=== PATIENT | female | born 1975 | race Caucasian/White ===

== ENCOUNTER 2016-12-17 19:26 | Emergency (ER) | payer BC ==
[~2016-12-17] VITALS: Ht 162.6 cm; Wt 121.0 kg
[~2016-12-17 19:26] MED LIST: APRE1TAB2 PO; CETI10CA PO; GUAI120S26 PO; IBUP-1542 PO
[2016-12-17 19:43] VITALS: Ht 162.6 cm; Wt 121.0 kg
[2016-12-17] MEDS ORDERED: morphine 4 MG/ML VIAL IV STA (20:03)
[2016-12-17] MEDS ORDERED: SOD CHLORIDE 0.9% 1,000 ML IV STA (20:03)
[2016-12-17] MEDS ORDERED: ONDANSETRON 4 MG INJ IV STA (20:03)
[2016-12-17 20:11] LABS: URINE BLOOD (Dip) POC 3+ (NEGATIVE)
[2016-12-17 20:49] LABS: ADD SCAN DIFF NO
[2016-12-17 20:53] LABS: BASOPHIL # 0.1 10^3/ul (0.0-0.1); BASOPHILS % 0.7 % (0.0-2.0); EOSINOPHILS # 0.2 10^3/ul (0.0-0.5); EOSINOPHILS % 1.8 % (0.0-7.0); HEMATOCRIT 39.7 % (37.0-47.0); HEMOGLOBIN 13.4 g/dl (12.0-16.0); LYMPHOCYTES # 2.9 10^3/ul (0.8-2.9); LYMPHOCYTES % 24.3 % (15.0-51.0); MEAN CORPUSCULAR HEMOGLOBIN 30.2 pg (29.0-33.0); MEAN CORPUSCULAR HGB CONC 33.8 g/dl (32.0-37.0); MEAN CORPUSCULAR VOLUME 89.6 fl (82.0-101.0); MEAN PLATELET VOLUME 11.5 fl (7.4-10.4); MONOCYTE # 0.6 10^3/ul (0.3-0.9); MONOCYTES % 5.3 % (0.0-11.0); NEUTROPHIL # 8.1 10^3/ul (1.6-7.5); NEUTROPHILS % 67.5 % (39.0-77.0); PLATELET COUNT 319 10^3/UL (140-415); RED BLOOD COUNT 4.43 10^6/ul (4.20-5.40); RED CELL DISTRIBUTION WIDTH 13.5 % (11.5-14.5)
[2016-12-17 20:55] LABS: ADD UMIC YES; UR BILIRUBIN (Dip) NEGATIVE (NEGATIVE); UR BLOOD (Dip) 2+ (NEGATIVE); UR COLOR LT. YELLOW (YELLOW); UR GLUCOSE (Dip) NEGATIVE (NEGATIVE); UR KETONES (Dip) NEGATIVE (NEGATIVE); UR LEUKOCYTE ESTERASE (Dip) 2+ (NEGATIVE); UR NITRITE (Dip) NEGATIVE (NEGATIVE); UR TOTAL PROTEIN (Dip) 1+ (NEGATIVE); UR UROBILINOGEN (Dip) 0.2 E.U./dL (0.1-1.0)
[2016-12-17 20:56] LABS: UR CLARITY SL HAZY (CLEAR)
[2016-12-17 21:03] LABS: UR BACTERIA FEW; UR SQUAMOUS EPITHELIAL CELL MODERATE
--- NOTE | 2016-12-17 21:15 | RADRPT ---
PROCEDURE: CT Abdomen and Pelvis without contrast CLINICAL INDICATION: Right lower quadrant and right upper quadrant abdominal pain TECHNIQUE: Transaxial images were obtained through the abdomen and pelvis on a multi-slice scanner without the intravenous contrast administration. No oral contrast had previously been given. Sagit torsten and coronal re-formations were subsequently reconstructed. One or more of the following dose reduction techniques were used: - Automated exposure control. - Adjustment of the mA and/or kV according to patient size. - Use of iterative reconstruction technique. Radiation dose: CTDIvol = 23.65 mGy; DLP = 1376.09 mGy-cm. COMPARISON: Comparison to the right upper quadrant abdominal sonogram done earlier on the same gwendolyn e. The previous sonogram demonstrated a 3 cm stone within the gallbladder not associated with gallbladd er wall thickening or bile duct dilatation. FINDINGS: Lung bases: The visualized lung bases appear unremarkable. Liver: The liver is mildly enlarged and mildly fatty infiltrated with no discrete focal lesion ident ified. Gallbladder: A 3 cm stone is seen within the gallbladder but the gallbladder wall is not thickened. Bile ducts: The intra and extrahepatic bile ducts are normal in caliber. Pancreas: Appears normal with no mass or inflammation evident. Spleen: Normal in size with no focal lesion. A small accessory spleen is seen at the inferior spine, . Adrenals: Normal with no mass identified. Kidneys, ureters and bladder: The kidneys are normal in size and there is no mass, pathological calc ification, or hydronephrosis evident. There is no perinephric stranding.The bladder is poorly disten ded. Reproductive organs: The uterus is midline. A 2.7 cm right adnexal cyst is evident. The left ovary appears mildly prominent measuring 4.6 cm in maximal diameter. Stomach and bowel: The stomach appears unremarkable. Diverticuli are seen within the sigmoid colon. There is no evidence of bowel obstruction or inflammation. Appendix: A normal vermiform appendix is evident. Peritoneum: No free intraperitoneal fluid or air is identified. Aorta: Normal in caliber with no aneurysmal dilatation. IVC: Unremarkable. Lymph nodes: No pathologically enlarged nodes are identified. Osseous structures: Mild degenerative spondylosis is seen to the thoracic spine. IMPRESSION: 1. A 3 cm stone is seen within the gallbladder but the gallbladder wall is not thickened, there is no bile duct dilatation, and the pancreas appears unremarkable. 2. Diverticuli are seen within the sigmoid colon but there is no evidence of bowel obstruction or i nflammation. A normal vermiform appendix is evident. 3. No evidence of urinary outflow obstruction or ureterolithiasis. The bladder is poorly distended. 4. There is no free intraperitoneal fluid or air. 5. Suggestion of a 2.7 cm right adnexal cyst. The left ovary appears mildly prominent measuring 4. 6 cm in maximal diameter. 6. Mild hepatomegaly with mild diffuse fatty infiltration but no focal lesion. Physician Miguel Angel Date Time Electronically viewed and signed by Gertrude Osman Physician on 12/17/2016 21:15 RH/
[2016-12-17 21:17] LABS: ALBUMIN 4.7 g/dl (3.3-4.9); ALBUMIN/GLOBULIN RATIO 1.42; CALCIUM 9.4 mg/dl (8.4-10.2); CREATININE 0.72 mg/dl (0.44-1.00); POTASSIUM 3.8 mmol/L (3.5-5.1)
--- NOTE | 2016-12-17 21:19 | RADRPT ---
PROCEDURE: US Abdomen Right Upper Quadrant. CLINICAL INDICATION: Right upper quadrant and right lower quadrant pain TECHNIQUE: Multiple real-time longitudinal and transverse images were acquired of the patient's [facility] upper quadrant abdomen utilizing a curved array transducer. COMPARISON: 06/05/2014 FINDINGS: Liver: The liver is enlarged with the sagittal diameter of the right lobe measuring 19.4 cm. The li marcela is diffusely echogenic suspicious for fatty infiltration. No focal lesion is evident. Gallbladder: A 3 cm shadowing stone is seen within the gallbladder but the gallbladder wall does not appear thickened. The technologist reports a negative sonographic Martines's sign. Bile ducts: There is no significant intra or extrahepatic bile duct dilatation. No choledocholiths a re seen within the visualized portions. The common bile duct measures 4.2 mm in cross diameter. Pancreas: The pancreas is largely obscured by bowel gas. Right adrenal : No mass is evident. Right kidney: Normal in echotexture andl in size. The right kidney measures 11.9 cm in length. No ma ss, pathological calcification, or hydronephrosis is evident. Peritoneum: There is no free intraperitoneal fluid IMPRESSION: 1. A 3 cm stone is seen within the gallbladder lumen but the gallbladder wall is not thickened and the technologist reports a negative sonographic Martines's sign. 2. No bile duct dilatation is evident. 3. The pancreas is obscured by bowel gas. 4. Hepatomegaly with diffuse fatty infiltration but no discrete focal lesion is evident. 5. Normal appearing right kidney without hydronephrosis. 6. No free fluid is identified. Physician Miguel Angel Date Time Electronically viewed and signed by Physician Miguel Angel on 12/17/2016 21:18 /
--- NOTE | 2016-12-17 21:41 | ERD ---
ER Documentation Chief Complaint Date/Time DATE: 12/17/16 TIME: 21:39 Chief Complaint burning when urinating, ruq abd pain radiating to back and n/v HPI Patient is a 41-year-old female who presents to the ED with right sided abdominal pain 1 day. She states that the pain is constant. She also complains of dysuria and urgency and pain in her back. She complains of nausea and had had one episode of nonbloody nonbilious emesis. Has had normal bowel movements daily. Denies fever or chills. She denies leg pain or swelling. Denies headache or dizziness. Denies chest pain or cough or shortness of breath. Denies recent travel or recent surgeries. No other complaints. ROS All systems reviewed and are negative except as per history of present illness. Medications Home Meds Active Scripts Ondansetron (Ondansetron Odt) 4 Mg Tab.rapdis, 4 MG PO Q6H Y for NAUSEA AND/OR VOMITING, #10 TAB Prov:WENDY TURNERC 12/17/16 Acetaminophen* (Tylophen*) 500 Mg Capsule, 1 CAP PO Q6H Y for PAIN AND OR ELEVATED TEMP, #20 CAP Prov:WENDY TURNER-C 12/17/16 Nitrofurantoin Monohyd Macrocr* (Macrobid*) 100 Mg Capsr, 100 MG PO BID for 7 Days, CAP Prov:WENDY TURNER PA-C 12/17/16 Ibuprofen* (Motrin*) 600 Mg Tab, 600 MG PO Q6H Y for PAIN AND OR ELEVATED TEMP, #30 TAB Prov:EMILY ANDERSON NP 02/28/16 Cetirizine Hcl* (Zyrtec*) 10 Mg Capsule, 10 MG PO DAILY, #30 TAB Prov:EMILY ANDERSON TECH[employer]ICAL [employer]ICATIONS MANAGER 02/28/16 Acaocatmhfg-Z-Xigyrctohh Hb* (Guaifenesin* DM Syrup) 120 Ml Syrup, 10 ML PO Q4H Y for COUGH, #120 ML Prov:EMILY ANDERSON NP 02/28/16 Reported Medications Apremilast (Otezla) Unknown Strength Tab.ds.pk, PO 02/28/16 Allergies Allergies: Coded Allergies: No Known Allergy (Verified , 06/05/14) PMhx/Soc Medical and Surgical Hx: pt denies Surgical Hx History of Surgery: No Anesthesia Reaction: No Hx Neurological Disorder: No Hx Respiratory Disorders: No Hx Cardiac Disorders: No Hx Psychiatric Problems: No Hx Miscellaneous Medical Probl: Yes (PSORIASIS) Hx Alcohol Use: No Hx Substance Use: No Hx Tobacco Use: No Smoking Status: Never smoker FmHx Family History: No coronary disease, No diabetes, No other Physical Exam Vitals Vital Signs Date Time Temp Pulse Resp B/P Pulse Ox O2 Delivery O2 Flow Rate FiO2 12/17/16 19:43 99.3 98 20 181/105 99 Physical Exam GENERAL: Well-developed, well-nourished female. Appears in no acute distress. HEAD: Normocephalic, atraumatic. EYES: Pupils are equally reactive bilaterally. EOMs grossly intact. No conjunctival erythema. ENT: Moist mucous membranes. No uvula deviation. No kissing tonsils. No exudates. NECK: Supple. No lymphadenopathy or thyromegaly. No meningismus. negative kernig. negative brudinski. LUNG: Clear to auscultation bilaterally. No rhonchi, wheezing, rales or coarse breath sounds. HEART: Regular rate and rhythm. No murmurs, rubs or gallops. ABDOMEN: No scars, ecchymosis or noted. Soft, and nondistended. Positive bowel sounds in all four quadrants. No rebound tenderness, no guarding. (-) McBurney s point tenderness. No CVA tenderness. Tenderness in the right lower quadrant right pelvic pain and right upper quadrant. BACK: No midline tenderness. Extremities: Equal pulses bilaterally. No peripheral clubbing, cyanosis or edema. No unilateral leg swelling. NEUROLOGIC: Alert and oriented. Moving all four extremities. 5/5 strength in all extremities. Normal speech. Steady gait. SKIN: Normal color. Warm and dry. Multiple psoriatic lesions capillary refill < 2 seconds Result Diagram: 12/17/16201712/17/16 2018 Results 24 hrs Laboratory Tests Test 12/17/16 20:14 12/17/16 20:18 12/17/16 20:21 Bedside Urine pH (LAB) 6.0 Bedside Urine Protein (LAB) 2+ Bedside Urine Glucose (UA) Negative Bedside Urine Ketones (LAB) Negative Bedside Urine Blood 3+ Bedside Urine Nitrite (LAB) Negative Bedside Urine Leukocyte Esterase (L 2+ White Blood Count 12.010^3/ul Red Blood Count 4.4310^6/ul Hemoglobin 13.4g/dl Hematocrit 39.7% Mean Corpuscular Volume 89.6fl Mean Corpuscular Hemoglobin 30.2pg Mean Corpuscular Hemoglobin Concent 33.8g/dl Red Cell Distribution Width 13.5% Platelet Count 03699^3/UL Mean Platelet Volume 11.5fl Neutrophils % 67.5% Lymphocytes % 24.3% Monocytes % 5.3% Eosinophils % 1.8% Basophils % 0.7% Nucleated Red Blood Cells % 0.0/100WBC Neutrophils # 8.110^3/ul Lymphocytes # 2.910^3/ul Monocytes # 0.610^3/ul Eosinophils # 0.210^3/ul Basophils # 0.110^3/ul Nucleated Red Blood Cells # 0.010^3/ul Sodium Level 139mmol/L Potassium Level 3.8mmol/L Chloride Level 102mmol/L Carbon Dioxide Level 25mmol/L Anion Gap 16 Blood Urea Nitrogen 7mg/dl Creatinine 0.72mg/dl Glucose Level 108mg/dl Calcium Level 9.4mg/dl Total Bilirubin 0.0mg/dl Direct Bilirubin 0.00mg/dl Indirect Bilirubin 0.0mg/dl Aspartate Amino Transf (AST/SGOT) 21IU/L Alanine Aminotransferase (ALT/SGPT) 29IU/L Alkaline Phosphatase 82IU/L Total Protein 8.0g/dl Albumin 4.7g/dl Globulin 3.30g/dl Albumin/Globulin Ratio 1.42 Lipase 35U/L Urine Color LT. YELLOW Urine Clarity SL HAZY Urine pH 6.0 Urine Specific [place] 1.010 Urine Ketones NEGATIVE Urine Nitrite NEGATIVE Urine Bilirubin NEGATIVE Urine Urobilinogen 0.2 E.U./dL Urine Leukocyte Esterase 2+ Urine Microscopic RBC 5-10/HPF Urine Microscopic WBC 25-50/HPF Urine Squamous Epithelial Cells MODERATE Urine Bacteria FEW Urine Yeast OCCASIONAL Urine Hemoglobin 2+ Urine Glucose NEGATIVE% Urine Total Protein 1+ Current Medications Medications (Trade) Dose Ordered Sig/Thomas Route PRN Reason Start Time Stop Time Status Last Admin Dose Admin Sodium Chloride (NS) 1,000 ml @ 1,000 mls/hr Q1H STAT IV 12/17/16 20:03 12/17/16 21:02 DC 12/17/16 20:54 Morphine Sulfate (morphine) 4 mg ONCE STAT IV 12/17/16 20:03 12/17/16 20:04 DC 12/17/16 20:54 Ondansetron HCl (Zofran Inj) 4 mg ONCE STAT IV 12/17/16 20:03 12/17/16 20:04 DC 12/17/16 20:54 Ketorolac Tromethamine (Toradol) 15 mg ONCE STAT IV 12/17/16 22:53 12/17/16 22:54 DC 12/17/16 23:04 Procedures/MDM ER COURSE: I kept the patient and/or family informed of laboratory and diagnostic imaging results throughout the emergency room course. EKG, MONITORS, & DIAGNOSTIC IMAGING: [place] [id number] Radiology Main Line: [phone] DIAGNOSTIC IMAGING REPORT Patient: MATILDA KISER : 1975 Age: 41 Sex: F MR #: [id number] DOS: 12/17/162002 Ordering MD: WENDY TURNER PA-C Location: [facility] Room/Bed: PROCEDURE: CT Abdomen and Pelvis without contrast CLINICAL INDICATION: Right lower quadrant and right upper quadrant abdominal pain TECHNIQUE: Transaxial images were obtained through the abdomen and pelvis on a multi-slice scanner without the intravenous contrast administration. No oral contrast had previously been given. Sagittal and coronal re-formations were subsequently reconstructed. One or more of the following dose reduction techniques were used: - Automated exposure control. - Adjustment of the mA and/or kV according to patient size. - Use of iterative reconstruction technique. Radiation dose: CTDIvol = 23.65 mGy; DLP = 1376.09 mGy-cm. COMPARISON: Comparison to the right upper quadrant abdominal sonogram done earlier on the same date. The previous sonogram demonstrated a 3 cm stone within the gallbladder not associated with gallbladder wall thickening or bile duct dilatation. FINDINGS: Lung bases: The visualized lung bases appear unremarkable. Liver: The liver is mildly enlarged and mildly fatty infiltrated with no discrete focal lesion identified. Gallbladder: A 3 cm stone is seen within the gallbladder but the gallbladder wall is not thickened. Bile ducts: The intra and extrahepatic bile ducts are normal in caliber. Pancreas: Appears normal with no mass or inflammation evident. Spleen: Normal in size with no focal lesion. A small accessory spleen is seen at the inferior spine,. Adrenals: Normal with no mass identified. Kidneys, ureters and bladder: The kidneys are normal in size and there is no mass, pathological calcification, or hydronephrosis evident. There is no perinephric stranding.The bladder is poorly distended. Reproductive organs: The uterus is midline. A 2.7 cm right adnexal cyst is evident. The left ovary appears mildly prominent measuring 4.6 cm in maximal diameter. Stomach and bowel: The stomach appears unremarkable. Diverticuli are seen within the sigmoid colon. There is no evidence of bowel obstruction or inflammation. Appendix: A normal vermiform appendix is evident. Peritoneum: No free intraperitoneal fluid or air is identified. Aorta: Normal in caliber with no aneurysmal dilatation. IVC: Unremarkable. Lymph nodes: No pathologically enlarged nodes are identified. Osseous structures: Mild degenerative spondylosis is seen to the thoracic spine. IMPRESSION: 1. A 3 cm stone is seen within the gallbladder but the gallbladder wall is not thickened, there is no bile duct dilatation, and the pancreas appears unremarkable. 2. Diverticuli are seen within the sigmoid colon but there is no evidence of bowel obstruction or inflammation. A normal vermiform appendix is evident. 3. No evidence of urinary outflow obstruction or ureterolithiasis. The bladder is poorly distended. 4. There is no free intraperitoneal fluid or air. 5. Suggestion of a 2.7 cm right adnexal cyst. The left ovary appears mildly prominent measuring 4.6 cm in maximal diameter. 6. Mild hepatomegaly with mild diffuse fatty infiltration but no focal lesion. Physician Miguel Angel Date Time Electronically viewed and signed by Physician Miguel Angel on 12/17/2016 21:15 RH/ CC: WENDY TURNER PA-C [place] [id number] Radiology Main Line: [phone] DIAGNOSTIC IMAGING REPORT Patient: MATILDA KISER : 1975 Age: 41 Sex: F MR #: [id number] DOS: 12/17/162002 Ordering MD: WENDY TURNER PA-C Location: [facility] Room/Bed: PROCEDURE: US Abdomen Right Upper Quadrant. CLINICAL INDICATION: Right upper quadrant and right lower quadrant pain TECHNIQUE: Multiple real-time longitudinal and transverse images were acquired of the patient's right upper quadrant abdomen utilizing a curved array transducer. COMPARISON: 06/05/2014 FINDINGS: Liver: The liver is enlarged with the sagittal diameter of the right lobe measuring 19.4 cm. The liver is diffusely echogenic suspicious for fatty infiltration. No focal lesion is evident. Gallbladder: A 3 cm shadowing stone is seen within the gallbladder but the gallbladder wall does not appear thickened. The technologist reports a negative sonographic Martines's sign. Bile ducts: There is no significant intra or extrahepatic bile duct dilatation. No choledocholiths are seen within the visualized portions. The common bile duct measures 4.2 mm in cross diameter. Pancreas: The pancreas is largely obscured by bowel gas. Right adrenal : No mass is evident. Right kidney: Normal in echotexture andl in size. The right kidney measures 11.9 cm in length. No mass, pathological calcification, or hydronephrosis is evident. Peritoneum: There is no free intraperitoneal fluid IMPRESSION: 1. A 3 cm stone is seen within the gallbladder lumen but the gallbladder wall is not thickened and the technologist reports a negative sonographic Martines's sign. 2. No bile duct dilatation is evident. 3. The pancreas is obscured by bowel gas. 4. Hepatomegaly with diffuse fatty infiltration but no discrete focal lesion is evident. 5. Normal appearing right kidney without hydronephrosis. 6. No free fluid is identified. Physician Miguel Angel Date Time Electronically viewed and signed by Physician Miguel Angel on 12/17/2016 21:18 RH/ CC: WENDY TURNER PA-C [facility] [id number] [place] [id number] Radiology Main Line: [phone] DIAGNOSTIC IMAGING REPORT Patient: MATILDA KISER : 1975 Age: 41 Sex: F MR #: [id number] DOS: 12/17/168 Ordering MD: WENDY TURNER PA-C Location: [facility] Room/Bed: PROCEDURE: Pelvic ultrasound, limited. CLINICAL INDICATION: Pelvic pain. TECHNIQUE: Multiple sonographic images of the pelvis were obtained utilizing a transabdominal technique. The images were reviewed on a PACS workstation. COMPARISON: None. FINDINGS: The uterus is visualized and measures 9.5 x 3.6 x 6.2 cm. No abnormal uterine mass is identified. The endometrial echo complex is homogeneous and measures 5.3 mm. There is no evidence for free fluid. The right ovary has a normal echotexture and measures 4.3 x 3.2 x 4.8 cm. The left ovary has a normal echotexture and measures 4.4 x 2.6 x 4.2 cm. There is normal flow to both ovaries. There are two follicular cysts within the right ovary measuring 2.1 x 3.2 x 2.0 cm to 0.0 x 2.0 x 1.4 cm. There are two follicular cyst within the left ovary measuring 1.9 x 3.5 x 2.9 cm and 2.0 x 2.5 x 2.2 cm. No adnexal masses are identified. IMPRESSION: Bilateral ovarian follicular cysts measuring up to 3.5 cm. Otherwise unremarkable pelvic ultrasound. .Angus Haynes MD, MD Date Time Electronically viewed and signed by .Angus Haynes MD, MD on 12/17/2016 23:01 .T/ CC: WENDY TURNER PA-C PROCEDURES: MEDICATIONS: , Toradol. Tolerated well and seen improvement in symptoms. LAB INTERPRETATION: CBC showed no evidence of systemic infection or severe anemia. CMP showed no evidence of electrolyte abnormalities, severe acidosis, alkalosis, renal failure , or liver disease. Lipase showed no evidence of acute pancreatitis. UA shows leukocytes with no nitrites or hematuria. Urine test was negative. MEDICAL DECISION MAKING: This is a 41-year-old female who presents with right-sided abdominal pain and right pelvic pain and dysuria 1 day vital signs were reviewed. Patient is afebrile. Patient is not hypoxic. Patient is not toxic or ill-appearing. Risk versus benefits of the CT scan were explained to patient. CT showed a A 3 cm stone is seen within the gallbladder lumen but the gallbladder wall is not thickened and the technologist reports a negative sonographic Martines's sign. No bile duct dilatation is evident. The pancreas is obscured by bowel gas. Hepatomegaly with diffuse fatty infiltration but no discrete focal lesion is evident Normal appearing right kidney without hydronephrosis. No free fluid is identified. Pelvic ultrasound was unremarkable for ovarian torsion. Patient has a UTI. Low suspicion for ovarian torsion, PID, tuboovarian abscess, ectopic , bowel obstruction, pyelonephritis, appendicitis, cervicitis, septic , molar , HELLP syndrome, preeclampsia, eclampsia, placenta previa, placenta abruptia. Low suspicion for ACS, AAA, perforated ulcer, bowel obstruction, cholecystitis, choledocholithiasis, cholangitis, pancreatitis, hepatic abscess, appendicitis, diverticulitis, gastroenteritis, hepatitis, peptic ulcer disease. Low suspicion for septic or obstructive stone.. DISCHARGE: At this time, patient is stable for discharge and outpatient management with no new complaints during the ER course. Patient was sent home with Zofran, Tylenol and Macrobid and a copy of all imaging and laboratory studies.. Patient will be discharged home with instructions to recheck for new or worsening symptoms such as fever, nausea, weakness, LOC and to follow up with primary care in the next 1 -2 days. Patient was advised to return to the ER for any new or worsening symptoms. Plan was discussed and patient and/or family understands and agrees. Home instructions were given. Departure Diagnosis: Primary Impression: UTI (urinary tract infection) Urinary tract infection type: site unspecified Hematuria presence: without hematuria Qualified Code: N39.0 - Urinary tract infection without hematuria, site unspecified Condition: Stable WENDY TURNER PA-C Dec 17, 2016 21:41
[2016-12-17] MEDS ORDERED: KETOROLAC 15 MG INJ IV STA (22:53)
--- NOTE | 2016-12-17 23:02 | RADRPT ---
PROCEDURE: Pelvic ultrasound, limited. CLINICAL INDICATION: Pelvic pain. TECHNIQUE: Multiple sonographic images of the pelvis were obtained utilizing a transabdominal zainab hnique. The images were reviewed on a PACS workstation. COMPARISON: None. FINDINGS: The uterus is visualized and measures 9.5 x 3.6 x 6.2 cm. No abnormal uterine mass is identified. T he endometrial echo complex is homogeneous and measures 5.3 mm. There is no evidence for free fluid. The right ovary has a normal echotexture and measures 4.3 x 3. 2 x 4.8 cm. The left ovary has a normal echotexture and measures 4.4 x 2.6 x 4.2 cm. There is norm al flow to both ovaries. There are two follicular cysts within the right ovary measuring 2.1 x 3.2 x 2.0 cm to 0.0 x 2.0 x 1.4 cm. There are two follicular cyst within the left ovary measuring 1.9 x 3.5 x 2.9 cm and 2.0 x 2.5 x 2.2 cm. No adnexal masses are identified. IMPRESSION: Bilateral ovarian follicular cysts measuring up to 3.5 cm. Otherwise unremarkable pelvic ultrasound. .Angus Haynes MD, Date Time Electronically viewed and signed by .Angus Haynes MD, MD on 12/17/2016 23:01 .T/
[2016-12-17] MEDS ORDERED: NITR-58 PO (23:17)
[2016-12-17] MEDS ORDERED: ACET500C5 PO (23:17)
[2016-12-17] MEDS ORDERED: ONDA4TAB14 PO (23:18)
[2016-12-17 23:27] VITALS: BP 132/83; PULSE 95; RESP 20
== END 2016-12-17 23:30 | disposition home or self-care (01) ==
LOC: FTE 19:26
DX: N39.0 Urinary tract infection, site not specified (principal); R11.2 Nausea with vomiting, unspecified; R10.2 Pelvic and perineal pain
CPT/HCPCS: 36415; 74176; 76705; 76856; 80053; 81001; 83690; 85025; 96374; 96375; 99285; J1885; J2270; J2405; J7030; 81003

== ENCOUNTER 2017-07-11 09:54 | Emergency (ER) | END 2017-07-11 17:42 | disposition home or self-care (01) ==

== ENCOUNTER 2017-10-04 20:44 | Emergency (ER) | END 2017-10-05 01:50 | disposition home or self-care (01) ==

== ENCOUNTER 2017-10-09 00:05 | Inpatient (IN) | END 2017-10-09 19:00 | disposition home or self-care (01) | DRG 770 ==

== ENCOUNTER 2018-04-29 17:35 | Emergency (ER) | END 2018-04-29 20:58 | disposition home or self-care (01) ==

== ENCOUNTER 2018-10-09 22:21 | Outpatient (CLI) | payer BC ==
[~2018-10-09] VITALS: Ht 167.6 cm; Wt 138.8 kg
[~2018-10-09 22:21] MED LIST changes: +ACET325T33 PO; +CEPH-443 PO; +GUAI120S25 PO; -GUAI120S26 PO; +NITR-58 PO; +ONDA4TAB14 PO
[2018-10-09] MEDS ORDERED: AL HYDROX/MG HYDROX/SIMETH 30 ML CUP PO ONE (23:00)
[2018-10-09 23:46] VITALS: BP 121/61; PULSE 102; RESP 18
[2018-10-10] MEDS ORDERED: [UNRECOGNIZED DRUG - CODE] TOP (00:21)
[2018-10-10] MEDS ORDERED: DOCO100C PO (00:21)
[2018-10-10] MEDS ORDERED: ASPI-805 PO (00:21)
[2018-10-10] MEDS ORDERED: PREN-19 PO (00:21)
--- NOTE | 2018-10-10 02:00 | TRIAGE ---
OB Triage Datetime Report Generated by CPN: 10/10/2018 01:59 Datetime: 10/09/2018 22:30 Time of Arrival: 10/09/2018 22:10 EGA: 33.1 Arrived By: Wheelchair Arrived From: Home Chief Complaint: w/ A1DM c/o RUQ pain since yesterday, blurry vision, n/v,left foot swollen an d hi BP today Movement: Present Contractions: Denies/Absent Rupture of Membranes: Denies Vaginal Bleeding: None Vaginal Discharge: Denies Recent Sexual Intercouse: Denies Abdominal Trauma: Not Applicable Patient Complaints: Visual Disturbance; Nausea; Vomiting; Epigastric Pain; Dependent Edema Time Provider Notified: 10/09/2018 22:30 Provider Notified: Dr Platt Initial Plan: EFM,UA,UCED,AMYLASE,LIPASE,CBC,CMP,URIC ACID,ABD U/S,EFW,BPP Datetime: 10/09/2018 22:29 Stage of : OB Triage Maternal Assessment Level of Consciousness: Fully Conscious DTR's/Clonus: DTRs 2+; No Clonus Headache: Denies Blurred Vision: Yes Respiratory Effort: Unlabored Nausea/Vomiting: Hx of Nausea/Vomiting RUQ Epigastric Pain: Present Facial Edema: None Labor Evaluation Monitor Mode: External Resting Tone [place]: Relaxed Heart Rate Monitor Mode: External US Comments: [id number] Pain Assessment Pain Scale: 0
--- NOTE | 2018-10-10 07:06 | PN ---
Triage Information Date/Time 10/10/1806/18/645 Reason for visit: BP 153/98 per patient Weeks of Gestation 33w1d /Para Diabetes: gestational Diabetes management: diet controlled Hypertention: induced Additional information 153/98 per patient foot swollen bluured vision and N&Vx3 reolved, under tremendous stress due to familiy matter Objective Vital Signs Date Temp Pulse Resp B/P (MAP) Pulse Ox O2 O2 Flow FiO2 Time Delivery Rate 10/09/18 98.4 102 18 121/61 Room Air 23:46 (81) Heart Rate: 150's (160) Heart Rate Comments CAT I Contractions: None Results/Medications Result Diagram: 10/09/18225310/09/182253 Results 24 hrs Laboratory Tests Test 10/09/18 22:20 10/09/18 22:54 Urine Color YELLOW Urine Clarity SLIGHTLY CLOUDY A Urine pH 6.0 Urine Specific [place] 1.010 Urine Ketones NEGATIVE Urine Nitrite NEGATIVE Urine Bilirubin NEGATIVE Urine Urobilinogen NEGATIVE Urine Leukocyte Esterase NEGATIVE Urine Microscopic RBC 2 Urine Microscopic WBC 0 Urine Squamous Epithelial Cells FEW Urine Bacteria FEW A Urine Hemoglobin 1+ H Urine Glucose 1+ H Urine Total Protein NEGATIVE White Blood Count 8.2 # Red Blood Count 3.53 L Hemoglobin 11.0 L Hematocrit 32.7 L Mean Corpuscular Volume 92.6 Mean Corpuscular Hemoglobin 31.2 Mean Corpuscular Hemoglobin Concent 33.6 Red Cell Distribution Width 14.6 H Platelet Count 205 # Mean Platelet Volume 12.0 H Immature Granulocytes % 0.600 H Neutrophils % 64.6 Lymphocytes % 25.3 Monocytes % 7.6 Eosinophils % 1.3 Basophils % 0.6 Nucleated Red Blood Cells % 0.0 Immature Granulocytes # 0.050 H Neutrophils # 5.3 Lymphocytes # 2.1 Monocytes # 0.6 Eosinophils # 0.1 Basophils # 0.1 Nucleated Red Blood Cells # 0.0 Prothrombin Time 13.3 Prothrombin Time Ratio 1.0 INR International Normalized Ratio 1.00 Activated Partial Thromboplast Time 26.5 Sodium Level 138 Potassium Level 3.6 Chloride Level 105 Carbon Dioxide Level 22 Anion Gap 11 Blood Urea Nitrogen 9 Creatinine 0.41 L Est Glomerular Filtrat Rate mL/min > 60 Glucose Level 203 Uric Acid 4.2 Calcium Level 9.0 Total Bilirubin 0.2 Direct Bilirubin 0.00 Indirect Bilirubin 0.2 Aspartate Amino Transf (AST/SGOT) 17 Alanine Aminotransferase (ALT/SGPT) 14 Alkaline Phosphatase 79 Total Protein 6.4 Albumin 3.3 Globulin 3.10 Albumin/Globulin Ratio 1.06 Amylase Level 61 Lipase 59 Medications [facility] Results abd u/s gall stone , fatty liver BPP 8/8 ANDREEA 16.7 EFW 2908gm 97% Disposition: Discharge Assessment/Plan A IUP 33w1d normotensive P discharge home with f/u with her OB ODILIA DIETZ MD Oct 10, 2018 06:55
== END 2018-10-10 00:30 | disposition home or self-care (01) ==
LOC: OBT 22:21 → L-D 22:23 → OBT 10-10 00:30
PROVIDERS: ATTEND Obstetrics & Gynecology
DX: O24.419 Gestational diabetes mellitus in pregnancy, unspecified control (principal); O13.3 Gestational [pregnancy-induced] hypertension without significant proteinuria, third trimester; O09.523 Supervision of elderly multigravida, third trimester; Z3A.33 33 weeks gestation of pregnancy
CPT/HCPCS: 36415; 76705; 76815; 76818; 80053; 81001; 82150; 83690; 84560; 85025; 85610; 85730; 87086; Z7500; Z7610; G0463